=== PATIENT | female | born 1970 | race Caucasian/White ===

== ENCOUNTER → 2017-03-06 | Outpatient (CLI) | payer BC ==
[~2017-03-06] MED LIST: ALPR-385 PO; AMLO-110 PO; DIPH25CA65 PO; EST1 PO; IBUP-1050 PO; LEVO75TA5 PO; OXYC-57 PO; SUCR1TAB29 PO
[2017-03-06 18:00] LABS: BASO % 0.9 %; BASO ABS # 0.05 K/uL (0-0.2); COMPLETE YES; HEMATOCRIT 40.6 % (37-47); IG% 0.2 %; LYMPH % 35.7 %; LYMPH ABS # 2.03 K/uL (1.2-3.4); MEAN CELL VOLUME 87.3 fL (80-100); MEAN CORPUSCULAR HEMOGLOBIN 29.9 pg (25-34); MEAN CORPUSCULAR HGB CONC 34.2 g/dl (32-36); MEAN PLATELET VOLUME 10.4 fL (7.4-10.4); MONO % 9.3 %; NEUT % 50.9 %; PLATELET COUNT 260 K/uL (130-400); RED BLOOD COUNT 4.65 M/uL (4.2-5.4); WHITE BLOOD COUNT 5.68 K/uL (4.8-10.8)
[2017-03-06 18:13] LABS: ALT/SGPT 75 U/L (12-78); BLOOD UREA NITROGEN 11 mg/dl (7-18); BUN/CREATININE RATIO 12.6 (10-20); CALCIUM 9.8 mg/dl (8.5-10.1); CARBON DIOXIDE 28 mmol/L (21-32); CHLORIDE 105 mmol/L (98-107); CREATININE 0.88 mg/dl (0.60-1.20); GLUCOSE 97 mg/dl (70-99); POTASSIUM 3.2 mmol/L (3.5-5.1); SODIUM 142 mmol/L (136-145)
[2017-03-06 18:15] LABS: ALB/GLOB RATIO 1.2 (0.9-2); ALKALINE PHOSPHATASE 90 U/L (45-117); AST/SGOT 43 U/L (15-37)
== END | disposition home or self-care (01) ==
LOC: C.LABMFLN 15:56
PROVIDERS: ATTEND Surgery
DX: Z01.812 Encounter for preprocedural laboratory examination (principal); K80.20 Calculus of gallbladder without cholecystitis without obstruction

== ENCOUNTER 2017-03-08 10:29 | Day surgery (SDC) | payer BC, OTHER ==
[2017-03-07 10:52] VITALS: BMI 32.0
[~2017-03-08] VITALS: Ht 162.6 cm; Wt 84.1 kg
[~2017-03-08 10:29] MED LIST changes: +CLINDAMYCIN IV 900 MG in DEXTROSE 5% 100ML 100 ML IV SCH; +LACTATED RINGER'S 1000ML 1,000 ML IV SCH; -OXYC-57 PO
[2017-03-08 11:34] VITALS: BP 131/93; PULSE 75; TEMP 37; O2SAT 97; Ht 162.6 cm; Wt 84.1 kg
[2017-03-08] MEDS ORDERED: PROPOFOL IV EMULSION 10 MG/ML 20 ML VIAL IV ONE (11:56)
[2017-03-08] MEDS ORDERED: FENTANYL CITRATE INJ 50 MCG/1 ML 2 ML VIAL ONE (11:56)
[2017-03-08] MEDS ORDERED: LIDOCAINE HCL 2% 2 ML VIAL (20MG/ML) ONE (11:56)
[2017-03-08] MEDS ORDERED: MIDAZOLAM HCL 1 MG/ML 2ML VIAL ONE (11:56)
[2017-03-08] MEDS ORDERED: ONDANSETRON INJ 2 MG/ML 2 ML VIAL ONE (11:56)
--- NOTE | 2017-03-08 13:00 | History & Physical Bridge Note ---
H&P Re-Evaluation Bridge Note: I have examined the patient, reviewed the History & Physical and in the interval since the performance of the History & Physical I have noted the following changes of clinical significance: No changes noted
[2017-03-08] MEDS ORDERED: SODIUM CHLORIDE 0.9% PF 50 ML VIAL ONE (13:11)
[2017-03-08] MEDS ORDERED: BUPIVACAINE 0.5 % 5 MG/1 ML MPF 30ML VIAL ONE (13:12)
[2017-03-08] MEDS ORDERED: OXYC-57 PO (13:17)
--- NOTE | 2017-03-08 13:19 | Discharge Instructions ---
Discharge Instructions Date of Service Mar 08, 2017. Visit Reason for Visit: Gallstones Discharge Discharge Diagnosis / Problem: laparoscopic cholecystectomy Discharge Goals Goal(s): Decrease discomfort Activity Recommendations Activity Limitations: as noted below Lifting Limitations: no more than 10 pounds Shower/Bathe: no limitations (ok to shower) Driving or Machine Use: resume 3 days after discharge (if not taking Percocet) Anesthesia . Post Anesthesia Instructions: If you have had General Anesthesia or IV Sedation: * Do not drive today. * Resume driving when surgeon permits. * Do not make important decisions or sign legal documents today. * Call surgeon for: 1. Temperature elevations greater than 101 degrees F. 2. Uncontrollable pain. 3. Excessive bleeding. 4. Persistent nausea and vomiting. 5. Medication intolerance (nausea, vomiting or rash). * For nausea and vomiting use only clear liquids such as: tea, soda, bouillon until nausea subsides, then gradually increase diet as tolerated. * If you have any concerns or questions, call your surgeon's office. If physician is unavailable and it is an emergency, call 911 or go to the nearest emergency room. . Instructions / Follow-Up Instructions / Follow-Up Dr. Grover as planned in 2 weeks, call [phone] for any questions Diet Recommendations Recommended Home Diet: no limitations Pending Studies Studies pending at discharge: no Medical Emergencies . Who to Call and When: Medical Emergencies: If at any time you feel your situation is an emergency, please call 911 immediately. . Non-Emergent Contact Non-Emergency issues call your: Surgeon Call Non-Emergent contact if: you have a fever, temperature is above 101.5, your pain is not controlled, you have any medication questions . . "Provider Documentation" section prepared by Amado Harris. .
[2017-03-08] MEDS ORDERED: EpHEDrine SULFATE INJ 50 MG/ML AMP IV PRN (13:30)
[2017-03-08] MEDS ORDERED: ATROPINE SULFATE 0.1 MG/ML 5ML SYR IV PRN (13:30)
[2017-03-08] MEDS ORDERED: ONDANSETRON INJ 2 MG/ML 2 ML VIAL IV PRN ×2 (13:30→15:00)
[2017-03-08] MEDS ORDERED: ROCURONIUM BROMIDE 10 MG/ML 5 ML VIAL IV ONE (13:49)
--- NOTE | 2017-03-08 14:37 | DIAGNOSTIC IMAGING REPORT ---
CHOLANGIOGRAM O.R. CLINICAL HISTORY: 46 years-old Female presenting with cholangiogram. TECHNIQUE: Fluoroscopy was provided for an intraoperative cholangiogram status post cholecystectomy. Contrast was injected through the cystic duct remnant. COMPARISON: None. FINDINGS: The common bile duct is normal in course and caliber. There are no filling defects seen within the common bile duct to suggest a retained stone. Contrast extends into the small bowel. Surgical clamps noted at the gallbladder fundus and gallbladder neck. Apparent leakage of contrast from the cystic duct tracking along the inferior aspect of the liver. Fluoroscopy dosage (mGy): Not available. Fluoroscopy time: 20.6 seconds. Number of fluoroscopic spot images: 4. IMPRESSION: Fluoroscopy provided for an intraoperative cholangiogram during cholecystectomy. At the time of the procedure, findings were concerning for bile leak. Please see separately dictated surgical report for further details. Electronically signed by: Manuel Valdes M.D. 03/08/2017 2:36 PM Dictated Date/Time: 03/08/2017 2:34 PM
[2017-03-08] MEDS ORDERED: IOPAMIDOL IV ONE (14:39)
[2017-03-08] MEDS ORDERED: GLYCOPYRROLATE INJ 0.2 MG/ML VIAL ONE (14:40)
[2017-03-08] MEDS ORDERED: NEOSTIGMINE METHYLSULFATE 5 MG/5 ML SYR ONE (14:40)
[2017-03-08] MEDS ORDERED: LACTATED RINGER'S 1000ML 1,000 ML IV SCH (14:51)
[2017-03-08] MEDS ORDERED: KETOROLAC TROMETHAMINE 30 MG/ML VIAL ONE (14:53)
[2017-03-08] MEDS ORDERED: OXYCODONE/ACETAMINOPHEN 5-325 TAB PO PRN (15:00)
[2017-03-08] MEDS ORDERED: MoRPHine SULFATE 4 MG/ML 1 ML CARP\\VIAL IV PRN (15:00)
--- NOTE | 2017-03-08 15:03 | [facility] Post Operative Brief Note ---
Immediate Operative Summary Operative Date Mar 08, 2017. Pre-Operative Diagnosis Cholelithiasis, epigastric pain Post-Operative Diagnosis Cholelithiasis, epigastric pain Procedure(s) Performed Laparoscopic Cholecystectomy with intraoperative cholangiogram Surgeon Dr. Grover [employer] Surgeon(s) Juvenal Harris PA-C Estimated Blood Loss 4 cc Findings window of safety obtained, cholangiogram with no filling defects. Cystic duct and artery doubly clipped and divided. Specimens A: gallbladder and contents Drains none Anesthesia GETA Complication(s) None Disposition Recovery Room / PACU
[2017-03-08] MEDS: FENTANYL CITRATE INJ 50 MCG/1 ML 2 ML VIAL IV PRN ×2 (15:07→15:12)
--- NOTE | 2017-03-08 15:14 | [facility] Operative Report ---
Operative Report Operative Date Mar 08, 2017. Pre-Operative Diagnosis Cholelithiasis, epigastric pain Post-Operative Diagnosis cholelithiasis Procedure(s) Performed laparoscopic cholecystectomy with intraoperative cholangiogram Surgeon Dr. Grover [employer] Demonstrator Surgeon(s) Juvenal Harris PA-C Estimated Blood Loss 4 cc Findings window of safety obtained, cholangiogram with no filling defects. Cystic duct and artery doubly clipped and divided Specimens A: gallbladder and contents Drains none Anesthesia GETA Complication(s) None Disposition Recovery Room / PACU Indications 46 year old female with symptomatic cholelithiasis, plan for laparoscopic cholecystectomy with intraoperative cholangiogram. The risks of the procedure were discussed, all questions were answered, and the patient agreed to proceed with surgery as planned. Description of Procedure The patient was properly identified, consented, and taken to the operating room where she was placed in the supine position. General endotracheal anesthesia was induced. SCDs and a safety belt were placed. Preoperative antibiotics were administered. The patient's abdomen was prepped and draped in the standard sterile fashion. A surgical timeout was performed and all parties were in agreement that this was the correct patient and procedure to be performed and we continued as planned. A stab incision was made in the left upper quadrant and the veress needle was inserted. Saline drop test confirmed entry into the peritoneum. The abdomen was insufflated with carbon dioxide which the patient tolerated without incident. The abdomen was entered using a 5mm scope and 5mm trochar using the optiview technique to the left and superior to the umbilicus. The laparoscope was inserted and no damage from initial trocar or veress needle placement was noted, no gross abnormalities were noted within the 4 quadrants of the abdomen. An 11 mm port was placed in the subxyphoid position and 5 mm ports were then placed in the right subcostal position x 2. The patient was placed in reverse Trendelenburg position and rotated towards the left. The dome of the gallbladder was retracted towards the left upper quadrant and the infundibulum was retracted toward the right lower quadrant revealing Calot' s triangle. Peritoneal attachments were taken down with electrocautery and blunt dissection. The cystic duct and artery were circumferentially dissected. A window of safety was obtained showing the cystic duct entering the gallbladder with no aberrant structures noted. The Schafer cholangiocatheter was then used to perform an intraoperative cholangiogram which showed no filling defects, and good filling of the duodenum and hepatic radicals with contrast. The cystic duct and artery were doubly clipped and divided. The gallbladder was then lifted off the gallbladder fossa with electrocautery. The gallbladder was placed in an Endo Catch bag and removed through the subxyphoid port site. The right upper quadrant was irrigated and hemostasis was found to be good. Trochars were removed under direct visualization and the abdomen was allowed to collapse. The subxyphoid port site fascia was closed with 0 Vicryl suture. The wound was irrigated, and the skin of all ports was closed with 4-0 Monocryl subcuticular sutures. Dermabond was placed over the wounds. The patient was extubated in the operating room and taken to the PACU where she recovered without apparent incident. All sponge, instrument and needle counts were correct at the conclusion of the procedure. The patient tolerated the procedure well. I attest to the content of the Intraoperative Record and any orders documented therein. Any exceptions are noted below.
--- NOTE | 2017-03-08 15:36 | Anesthesiology Progress Note ---
Anesthesia Post Op Note Date & Time Mar 08, 2017 at 15:36 Vital Signs Pain Intensity: 3 Vital Signs Past 12 Hours Date Time Temp Pulse Resp B/P (MAP) Pulse Ox O2 Delivery O2 Flow Rate FiO2 03/08/17 15:33 36.5 03/08/17 15:31 73 16 121/77 95 03/08/17 15:31 73 16 03/08/17 15:26 65 03/08/17 15:26 65 16 124/71 100 03/08/17 15:21 73 8 03/08/17 15:21 73 8 117/81 100 03/08/17 15:16 70 10 120/72 100 03/08/17 15:16 72 10 03/08/17 15:11 69 10 128/73 99 03/08/17 15:11 68 10 03/08/17 15:06 67 12 03/08/17 15:06 68 12 121/74 100 03/08/17 15:03 123/68 03/08/17 14:56 36.4 86 16 126/72 100 Oxymask 8 03/08/17 11:34 37 75 16 131/93 (106) 97 Room Air Notes Mental Status: alert / awake / arousable, participated in evaluation Pt Amnestic to Procedure: Yes Nausea / Vomiting: adequately controlled Pain: adequately controlled Airway Patency, RR, SpO2: stable & adequate BP & HR: stable & adequate Hydration State: stable & adequate Anesthetic Complications: no major complications apparent
[2017-03-08 15:40] VITALS: BP 120/69; PULSE 65; TEMP 36.5; O2SAT 95
[2017-03-08 16:10] VITALS: BP 129/85; PULSE 85; O2SAT 94
[2017-03-08 16:40] VITALS: BP 126/78; PULSE 73; TEMP 36.6; O2SAT 95
== END 2017-03-08 16:45 | disposition home or self-care (01) ==
LOC: C.ACU 10:29
PROVIDERS: ATTEND Surgery
DX: K80.20 Calculus of gallbladder without cholecystitis without obstruction (principal); K21.9 Gastro-esophageal reflux disease without esophagitis; E78.5 Hyperlipidemia, unspecified; E03.9 Hypothyroidism, unspecified; E53.8 Deficiency of other specified B group vitamins; M54.16 Radiculopathy, lumbar region; Z90.722 Acquired absence of ovaries, bilateral; Z90.79 Acquired absence of other genital organ(s); Z82.49 Family history of ischemic heart disease and other diseases of the circulatory system; Z83.3 Family history of diabetes mellitus; Z80.0 Family history of malignant neoplasm of digestive organs

== ENCOUNTER → 2017-03-10 | Outpatient (CLI) | payer BC ==
[~2017-03-10] MED LIST changes: -CLINDAMYCIN IV 900 MG in DEXTROSE 5% 100ML 100 ML IV SCH; -LACTATED RINGER'S 1000ML 1,000 ML IV SCH; +OXYC-57 PO
[2017-03-10 19:27] LABS: MANUAL MICROSCOPIC REQUIRED? NO; REVIEW REQ? NO; URINE APPEARANCE CLEAR (CLEAR); URINE BILIRUBIN NEG (NEG); URINE COLOR YELLOW; URINE EPITHELIAL CELL AUTO >30 /lpf (0-5); URINE NITRITE NEG (NEG); URINE SPECIFIC GRAVITY 1.012 (1.000-1.030); UROBILINOGEN NEG (NEG); ZZUR CULT IF INDIC CLEAN CATCH YES
== END | disposition home or self-care (01) ==
LOC: C.LABMFLN 15:36
PROVIDERS: ATTEND Family Medicine
DX: R19.7 Diarrhea, unspecified (principal)

== ENCOUNTER → 2017-08-03 | Outpatient (CLI) | payer BC | END | disposition home or self-care (01) | LOC: C.LABMFLN 16:34 | PROVIDERS: ATTEND Family Medicine | DX: E03.9 Hypothyroidism, unspecified (principal) ==